=== PATIENT | male | born 1960 | race Caucasian/White ===

== ENCOUNTER 2017-06-27 20:03 | Inpatient (IN) | payer MEDICAID, OTHER ==
[~2017-06-27] VITALS: Ht 172.7 cm; Wt 60.4 kg
[~2017-06-27 20:03] MED LIST: AMLO2.5T PO; FERR-72 PO; OLAN7.5T2 PO; TRIH5TAB2 PO
[2017-06-27 22:19] LABS: ANION GAP 7 mmol/L (8-16); CALCIUM, TOTAL 8.9 mg/dL (8.8-10.5); CARBON DIOXIDE 29 mmol/L (22-29); CHLORIDE 101 mmol/L (98-107); CREATININE 0.91 mg/dL (0.60-1.30); GLOMERULAR FILTR. RATE CALC > 60 mL/min (>60); POTASSIUM 3.9 mmol/L (3.5-5.1); SODIUM SERUM 137 mmol/L (136-145); UREA NITROGEN, BLOOD 27 mg/dL (7-18)
[2017-06-27 22:20] LABS: BASOPHILS % (AUTO) 0.8 % (0.0-2.0); EOSINOPHILS % (AUTO) 1.6 % (1.0-6.0); HEMATOCRIT 37.3 % (41-53); HEMOGLOBIN 12.2 g/dL (13.5-17.5); LYMPHOCYTES # (AUTO) 1.9 K/uL (1.0-4.8); LYMPHOCYTES % (AUTO) 18.8 % (22.0-44.0); MEAN CORPUSCULAR HEMOGLOBIN 25.8 pg (26.0-34.0); MEAN CORPUSCULAR HGB CONC 32.8 G/dL (31.0-37.0); MEAN CORPUSCULAR VOLUME 79 fL (80-100); MONOCYTES % (AUTO) 10.2 % (2.0-9.0); NEUTROPHILS # (AUTO) 7.1 K/uL (1.8-7.7); NEUTROPHILS % (AUTO) 68.6 % (40.0-70.0); PLATELET COUNT (AUTO) 216 K/uL (150-450); RED BLOOD CELL COUNT(AUTO) 4.75 MIL/uL (4.50-5.90); RED CELL DISTRIBUTION WIDTH 16.1 % (11.5-14.5); WHITE BLOOD COUNT (AUTO) 10.3 K/uL (4.5-11.0)
[2017-06-27 22:26] LABS: ALANINE AMINOTRANSFERASE 85 U/L (12-78); ALBUMIN 3.7 g/dL (3.4-5.0); ASPARTATE AMINOTRANSFERASE 90 U/L (15-37); TOTAL PROTEIN, SERUM 7.7 g/dL (6.4-8.2)
[2017-06-28] MEDS ORDERED: OLANZapine 5 MG TABLET PO ONE (01:45)
[2017-06-28] MEDS ORDERED: OLANZapine 5 MG RAPDIS TABLET PO PRN (03:00)
[2017-06-28] MEDS ORDERED: LORazepam 2 MG TABLET PO PRN (03:00)
[2017-06-28] MEDS ORDERED: ZOLPIDEM TARTRATE 10 MG TABLET PO PRN (03:00)
[2017-06-28 04:15] VITALS: BP 145/85
[2017-06-28 04:38] LABS: CHOL/HDL RATIO 2.4 (4.2-7.3); THYROID STIMULATING HORMONE 0.65 uIU/mL (0.36-3.74)
[2017-06-28] MEDS ORDERED: GuaiFENesin/D-METHORPHAN [SUGAR-FREE] 200-20MG/10 ML SYRUP UDCUP PO PRN (09:45)
[2017-06-28] MEDS ORDERED: MAGNESIUM HYDROXIDE SUSPENSION 30 ML UDCUP PO PRN (09:45)
[2017-06-28] MEDS ORDERED: MAG HYDROX/AL HYDROX/SIMETH ES 30 ML SUSPENSION UDCUP PO PRN (09:45)
[2017-06-28] MEDS ORDERED: TUBERCULIN, PURIFIED PROTEIN DERIVATIVE 5 TU/0.1 ML SYG ID ONE (09:45)
[2017-06-28] MEDS ORDERED: PROMETHAZINE HCL 25 MG TABLET PO PRN (09:45)
[2017-06-28] MEDS ORDERED: LOPERAMIDE HCL 2 MG CAPSULE PO PRN (09:45)
[2017-06-28] MEDS ORDERED: HydrOXYzine PAMOATE 50 MG CAPSULE PO PRN (09:45)
[2017-06-28] MEDS ORDERED: ACETAMINOPHEN 325 MG TABLET PO PRN (09:45)
[2017-06-28 09:58] VITALS: BP 122/73
[2017-06-28] MEDS: TRIHEXYPHENIDYL HCL 2 MG TABLET PO SCH ×2 (12:12→18:16)
[2017-06-28] MEDS: THIAMINE HCL 100 MG TABLET PO SCH (18:16)
[2017-06-28 18:34] VITALS: BP 125/78
[2017-06-28] MEDS ORDERED: OLANZapine 5 MG RAPDIS TABLET PO SCH (21:00)
[2017-06-29 08:24] VITALS: BP 142/71
[2017-06-29] MEDS: TRIHEXYPHENIDYL HCL 2 MG TABLET PO SCH ×3 (08:28→17:53)
[2017-06-29] MEDS: MULTIVITAMINS WITH MINERALS, THERAPEUTIC TABLET PO SCH (08:28)
[2017-06-29] MEDS: AmLODIPine BESYLATE 2.5 MG TABLET PO SCH (08:28)
[2017-06-29] MEDS: FOLIC ACID 1 MG TABLET PO SCH (08:28)
[2017-06-29] MEDS: THIAMINE HCL 100 MG TABLET PO SCH ×2 (08:29→17:53)
[2017-06-29 16:51] VITALS: BP 128/71
[2017-06-29 20:11] VITALS: BP 131/87
[2017-06-29] MEDS ORDERED: OLANZapine 10 MG RAPDIS TABLET PO SCH (21:00)
[2017-06-30 08:00] VITALS: BP 122/73
[2017-06-30] MEDS: THIAMINE HCL 100 MG TABLET PO SCH ×2 (08:36→16:02)
[2017-06-30] MEDS: MULTIVITAMINS WITH MINERALS, THERAPEUTIC TABLET PO SCH (08:36)
[2017-06-30] MEDS: FOLIC ACID 1 MG TABLET PO SCH (08:36)
[2017-06-30] MEDS: TRIHEXYPHENIDYL HCL 2 MG TABLET PO SCH ×3 (08:36→16:02)
[2017-06-30] MEDS: AmLODIPine BESYLATE 2.5 MG TABLET PO SCH (08:36)
[2017-06-30 16:23] VITALS: BP 150/78
[2017-06-30] MEDS: OLANZapine 5 MG RAPDIS TABLET PO SCH (20:46)
[2017-07-01] MEDS: TRIHEXYPHENIDYL HCL 2 MG TABLET PO SCH ×3 (08:14→16:33)
[2017-07-01] MEDS: FOLIC ACID 1 MG TABLET PO SCH (08:15)
[2017-07-01] MEDS: AmLODIPine BESYLATE 2.5 MG TABLET PO SCH (08:15)
[2017-07-01] MEDS: MULTIVITAMINS WITH MINERALS, THERAPEUTIC TABLET PO SCH (08:15)
[2017-07-01] MEDS: THIAMINE HCL 100 MG TABLET PO SCH ×2 (08:15→16:33)
[2017-07-01 08:16] VITALS: BP 122/71
[2017-07-01 16:50] VITALS: BP 127/67
[2017-07-01] MEDS: OLANZapine 5 MG RAPDIS TABLET PO SCH (21:16)
[2017-07-02 08:16] VITALS: BP 137/88
[2017-07-02] MEDS: FOLIC ACID 1 MG TABLET PO SCH (09:20)
[2017-07-02] MEDS: AmLODIPine BESYLATE 2.5 MG TABLET PO SCH (09:20)
[2017-07-02] MEDS: MULTIVITAMINS WITH MINERALS, THERAPEUTIC TABLET PO SCH (09:20)
[2017-07-02] MEDS: TRIHEXYPHENIDYL HCL 2 MG TABLET PO SCH ×3 (09:21→16:33)
[2017-07-02] MEDS: THIAMINE HCL 100 MG TABLET PO SCH ×2 (09:21→16:33)
[2017-07-02 17:39] VITALS: BP 136/72
[2017-07-02] MEDS: OLANZapine 5 MG RAPDIS TABLET PO SCH (20:30)
[2017-07-03 08:10] VITALS: BP 118/74
[2017-07-03] MEDS: AmLODIPine BESYLATE 2.5 MG TABLET PO SCH (08:40)
[2017-07-03] MEDS: FOLIC ACID 1 MG TABLET PO SCH (08:40)
[2017-07-03] MEDS: THIAMINE HCL 100 MG TABLET PO SCH ×2 (08:40→16:09)
[2017-07-03] MEDS: TRIHEXYPHENIDYL HCL 2 MG TABLET PO SCH ×3 (08:40→16:09)
[2017-07-03] MEDS: MULTIVITAMINS WITH MINERALS, THERAPEUTIC TABLET PO SCH (08:40)
[2017-07-03] MEDS: OLANZapine 5 MG RAPDIS TABLET PO SCH (20:35)
[2017-07-03 20:56] VITALS: BP 131/89
[2017-07-04 08:19] VITALS: BP 138/76
[2017-07-04] MEDS: THIAMINE HCL 100 MG TABLET PO SCH ×2 (10:33→17:05)
[2017-07-04] MEDS: MULTIVITAMINS WITH MINERALS, THERAPEUTIC TABLET PO SCH (10:33)
[2017-07-04] MEDS: TRIHEXYPHENIDYL HCL 2 MG TABLET PO SCH ×3 (10:33→17:05)
[2017-07-04] MEDS: AmLODIPine BESYLATE 2.5 MG TABLET PO SCH (10:33)
[2017-07-04] MEDS: FOLIC ACID 1 MG TABLET PO SCH (10:33)
[2017-07-04 16:30] VITALS: BP 150/70
[2017-07-04] MEDS: OLANZapine 5 MG RAPDIS TABLET PO SCH (20:27)
[2017-07-05 08:00] VITALS: BP 132/82
[2017-07-05] MEDS: FOLIC ACID 1 MG TABLET PO SCH (08:28)
[2017-07-05] MEDS: AmLODIPine BESYLATE 2.5 MG TABLET PO SCH (08:28)
[2017-07-05] MEDS: THIAMINE HCL 100 MG TABLET PO SCH ×2 (08:28→16:54)
[2017-07-05] MEDS: MULTIVITAMINS WITH MINERALS, THERAPEUTIC TABLET PO SCH (08:28)
[2017-07-05] MEDS: TRIHEXYPHENIDYL HCL 2 MG TABLET PO SCH ×3 (08:28→16:54)
[2017-07-05 16:19] VITALS: BP 135/76
[2017-07-05] MEDS: OLANZapine 5 MG RAPDIS TABLET PO SCH (22:01)
[2017-07-06 08:17] VITALS: BP 120/69
[2017-07-06] MEDS: MULTIVITAMINS WITH MINERALS, THERAPEUTIC TABLET PO SCH (08:34)
[2017-07-06] MEDS: TRIHEXYPHENIDYL HCL 2 MG TABLET PO SCH ×3 (08:34→16:37)
[2017-07-06] MEDS: AmLODIPine BESYLATE 2.5 MG TABLET PO SCH (08:35)
[2017-07-06] MEDS: FOLIC ACID 1 MG TABLET PO SCH (08:35)
[2017-07-06] MEDS: THIAMINE HCL 100 MG TABLET PO SCH ×2 (08:35→16:37)
[2017-07-06 18:08] VITALS: BP 128/76
[2017-07-06] MEDS: OLANZapine 5 MG RAPDIS TABLET PO SCH (20:11)
[2017-07-07] MEDS: THIAMINE HCL 100 MG TABLET PO SCH ×2 (09:12→16:12)
[2017-07-07] MEDS: MULTIVITAMINS WITH MINERALS, THERAPEUTIC TABLET PO SCH (09:12)
[2017-07-07] MEDS: TRIHEXYPHENIDYL HCL 2 MG TABLET PO SCH ×3 (09:12→16:12)
[2017-07-07] MEDS: FOLIC ACID 1 MG TABLET PO SCH (09:12)
[2017-07-07] MEDS: AmLODIPine BESYLATE 2.5 MG TABLET PO SCH (09:12)
[2017-07-07 09:17] VITALS: BP 123/84
[2017-07-07 16:33] VITALS: BP 119/71
[2017-07-07] MEDS: OLANZapine 5 MG RAPDIS TABLET PO SCH (20:45)
[2017-07-08 08:38] VITALS: BP 143/79
[2017-07-08] MEDS: THIAMINE HCL 100 MG TABLET PO SCH (09:18)
[2017-07-08] MEDS: FOLIC ACID 1 MG TABLET PO SCH (09:18)
[2017-07-08] MEDS: AmLODIPine BESYLATE 2.5 MG TABLET PO SCH (09:18)
[2017-07-08] MEDS: MULTIVITAMINS WITH MINERALS, THERAPEUTIC TABLET PO SCH (09:18)
[2017-07-08] MEDS: TRIHEXYPHENIDYL HCL 2 MG TABLET PO SCH ×3 (09:19→17:35)
[2017-07-08 16:03] VITALS: BP 124/70
[2017-07-08] MEDS: OLANZapine 5 MG RAPDIS TABLET PO SCH (20:52)
[2017-07-09 08:17] VITALS: BP 130/72
[2017-07-09] MEDS: TRIHEXYPHENIDYL HCL 2 MG TABLET PO SCH ×3 (09:13→16:57)
[2017-07-09] MEDS: AmLODIPine BESYLATE 2.5 MG TABLET PO SCH (09:13)
[2017-07-09] MEDS: MULTIVITAMINS WITH MINERALS, THERAPEUTIC TABLET PO SCH (09:13)
[2017-07-09 16:20] VITALS: BP 119/66
[2017-07-09] MEDS: OLANZapine 5 MG RAPDIS TABLET PO SCH (21:06)
[2017-07-10 08:15] VITALS: BP 132/81
[2017-07-10] MEDS: AmLODIPine BESYLATE 2.5 MG TABLET PO SCH (08:28)
[2017-07-10] MEDS: MULTIVITAMINS WITH MINERALS, THERAPEUTIC TABLET PO SCH (08:28)
[2017-07-10] MEDS: TRIHEXYPHENIDYL HCL 2 MG TABLET PO SCH ×3 (08:28→16:09)
[2017-07-10 16:23] VITALS: BP 127/65
[2017-07-10] MEDS: OLANZapine 5 MG RAPDIS TABLET PO SCH (20:09)
[2017-07-11] MEDS: MULTIVITAMINS WITH MINERALS, THERAPEUTIC TABLET PO SCH (08:12)
[2017-07-11] MEDS: TRIHEXYPHENIDYL HCL 2 MG TABLET PO SCH ×3 (08:12→16:46)
[2017-07-11] MEDS: AmLODIPine BESYLATE 2.5 MG TABLET PO SCH (08:12)
[2017-07-11 08:17] VITALS: BP 115/78
[2017-07-11 16:00] VITALS: BP 127/84
[2017-07-11] MEDS: OLANZapine 5 MG RAPDIS TABLET PO SCH (20:54)
[2017-07-12 08:09] VITALS: BP 147/94
[2017-07-12] MEDS: MULTIVITAMINS WITH MINERALS, THERAPEUTIC TABLET PO SCH (08:22)
[2017-07-12] MEDS: AmLODIPine BESYLATE 2.5 MG TABLET PO SCH (08:22)
[2017-07-12] MEDS: TRIHEXYPHENIDYL HCL 2 MG TABLET PO SCH ×2 (08:22→14:03)
[2017-07-12] MEDS ORDERED: TRIH2TAB3 PO (13:47)
[2017-07-12] MEDS ORDERED: OLAN10TA3 PO (13:47)
[2017-07-12] MEDS ORDERED: MULT1TAB28 PO (13:51)
== END 2017-07-12 15:45 | disposition home or self-care (01) | DRG 750 ==
LOC: EMS 20:05 → 3EC 06-28 03:44
PROVIDERS: ADMIT Psychiatry & Neurology Psychiatry; ATTEND Psychiatry & Neurology Psychiatry
DX: F25.9 Schizoaffective disorder, unspecified (principal); R45.851 Suicidal ideations; F41.9 Anxiety disorder, unspecified; F31.9 Bipolar disorder, unspecified; B19.20 Unspecified viral hepatitis C without hepatic coma; D64.9 Anemia, unspecified; G47.00 Insomnia, unspecified; Z59.0 Homelessness; Z99.3 Dependence on wheelchair; Z91.14 Patient's other noncompliance with medication regimen; Z91.5 Personal history of self-harm; Z68.1 Body mass index [BMI] 19.9 or less, adult; Z84.1 Family history of disorders of kidney and ureter; Z79.899 Other long term (current) drug therapy
CPT/HCPCS: 84443; 99285; G0480

== ENCOUNTER 2017-12-26 04:16 | Inpatient (IN) | payer MEDICAID, OTHER ==
[~2017-12-26] VITALS: Ht 170.2 cm; Wt 65.9 kg
[~2017-12-26 04:16] MED LIST changes: -FERR-72 PO; +MULT1TAB28 PO; +OLAN10TA3 PO; -OLAN7.5T2 PO; +TRIH2TAB3 PO; -TRIH5TAB2 PO
[2017-12-26 05:19] LABS: BASOPHILS % (AUTO) 0.9 % (0.0-2.0); EOSINOPHILS % (AUTO) 0.6 % (1.0-6.0); HEMATOCRIT 36.4 % (41-53); HEMOGLOBIN 12.1 g/dL (13.5-17.5); LYMPHOCYTES # (AUTO) 1.6 K/uL (1.0-4.8); LYMPHOCYTES % (AUTO) 15.4 % (22.0-44.0); MEAN CORPUSCULAR HGB CONC 33.2 G/dL (31.0-37.0); MEAN CORPUSCULAR VOLUME 75 fL (80-100); MONOCYTES # (AUTO) 1.3 K/uL (0.1-1.0); MONOCYTES % (AUTO) 12.5 % (2.0-9.0); NEUTROPHILS # (AUTO) 7.1 K/uL (1.8-7.7); NEUTROPHILS % (AUTO) 70.6 % (40.0-70.0); PLATELET COUNT (AUTO) 205 K/uL (150-450); RED BLOOD CELL COUNT(AUTO) 4.83 MIL/uL (4.50-5.90); RED CELL DISTRIBUTION WIDTH 15.3 % (11.5-14.5)
[2017-12-26 05:34] LABS: ANION GAP 10 mmol/L (8-16); CALCIUM, TOTAL 9.5 mg/dL (8.8-10.5); CARBON DIOXIDE 28 mmol/L (22-29); CHLORIDE 105 mmol/L (98-107); GLOMERULAR FILTR. RATE CALC > 60 mL/min (>60); GLUCOSE,RANDOM 92 mg/dL (70-110); POTASSIUM 3.8 mmol/L (3.5-5.1); SODIUM SERUM 143 mmol/L (136-145); UREA NITROGEN, BLOOD 44 mg/dL (7-18)
[2017-12-26 05:40] LABS: ALANINE AMINOTRANSFERASE 63 U/L (12-78); ALBUMIN 3.9 g/dL (3.4-5.0); ALKALINE PHOSPHATASE 61 U/L (46-116); ASPARTATE AMINOTRANSFERASE 67 U/L (15-37); BILIRUBIN,TOTAL 1.4 mg/dL (0.1-1.0); TOTAL PROTEIN, SERUM 8.2 g/dL (6.4-8.2)
[2017-12-26] MEDS ORDERED: ZOLPIDEM TARTRATE 10 MG TABLET PO PRN (06:15)
[2017-12-26] MEDS ORDERED: LORazepam 2 MG TABLET PO PRN (06:15)
[2017-12-26] MEDS ORDERED: HALOPERIDOL 5 MG TABLET PO PRN (06:15)
[2017-12-26] MEDS ORDERED: DiphenhydrAMINE HCL 50 MG/ML VIAL IM ONE (06:45)
[2017-12-26] MEDS ORDERED: LORazepam 2 MG/ML VIAL IM ONE (06:45)
[2017-12-26] MEDS ORDERED: HALOPERIDOL LACTATE 5 MG/ML VIAL IM ONE (06:45)
[2017-12-26 09:19] LABS: AMPHET/METH SCREEN,URINE POSITIVE (NEGATIVE); APPEARANCE,URINE CLEAR (CLEAR); BARBITURATE SCREEN, URINE NEGATIVE (NEGATIVE); BENZODIAZEPINES SCREEN,URINE NEGATIVE (NEGATIVE); CANNABINOID SCREEN,URINE NEGATIVE (NEGATIVE); COCAINE SCREEN,URINE NEGATIVE (NEGATIVE); GLUCOSE, URINE (UA) NEGATIVE (NEGATIVE); KETONES,URINE TRACE mg/dL (NEGATIVE); LEUKOCYTE ESTERASE ,URINE NEGATIVE (NEGATIVE); METHADONE SCREEN, URINE NEGATIVE (NEGATIVE); NITRATE,URINE NEGATIVE (NEGATIVE); OCCULT BLOOD,URINE NEGATIVE (NEGATIVE); OPIATE SCREEN,URINE NEGATIVE (NEGATIVE); PH,URINE 5.5 (5.0-8.0); PROTEIN,URINE NEGATIVE (NEGATIVE)
[2017-12-26 09:23] LABS: PHENCYCLIDINE SCREEN,URINE NEGATIVE (NEGATIVE)
[2017-12-26 09:31] LABS: BILIRUBIN,URINE PRELIM. POSITIVE (NEGATIVE)
[2017-12-26 17:00] VITALS: BP 121/87
[2017-12-26] MEDS ORDERED: CloNIDine HCL 0.1 MG TABLET PO PRN (18:00)
[2017-12-26] MEDS ORDERED: MAG HYDROX/AL HYDROX/SIMETH ES 30 ML SUSPENSION UDCUP PO PRN (18:00)
[2017-12-26] MEDS ORDERED: ALBUTEROL SULFATE HFA 90 MCG/PUFF 8 GM INHALER IH PRN (18:00)
[2017-12-26] MEDS ORDERED: LOPERAMIDE HCL 2 MG CAPSULE PO PRN (18:00)
[2017-12-26] MEDS ORDERED: IBUPROFEN 600 MG TABLET PO PRN (18:00)
[2017-12-26] MEDS ORDERED: MAGNESIUM HYDROXIDE SUSPENSION 30 ML UDCUP PO PRN (18:00)
[2017-12-26] MEDS ORDERED: ACETAMINOPHEN 325 MG TABLET PO PRN (18:00)
[2017-12-26] MEDS ORDERED: BENZOCAINE/MENTHOL LOZENGE [8 LOZENGES/PACKET] MM PRN (18:00)
[2017-12-26] MEDS ORDERED: PETROLATUM,WHITE 71 GM JELLY TP PRN (18:00)
[2017-12-26] MEDS ORDERED: BACITRACIN 28.4 GM OINTMENT TP PRN (18:00)
[2017-12-26] MEDS: DOCUSATE SODIUM 100 MG CAPSULE PO SCH (18:00)
[2017-12-26] MEDS ORDERED: ONDANSETRON HCL 4 MG TABLET PO PRN (18:00)
[2017-12-27 07:12] LABS: BASOPHILS % (AUTO) 0.5 % (0.0-2.0); EOSINOPHILS % (AUTO) 3.1 % (1.0-6.0); HEMATOCRIT 38.5 % (41-53); HEMOGLOBIN 12.4 g/dL (13.5-17.5); LYMPHOCYTES % (AUTO) 14.9 % (22.0-44.0); MEAN CORPUSCULAR HEMOGLOBIN 24.6 pg (26.0-34.0); MEAN CORPUSCULAR HGB CONC 32.3 G/dL (31.0-37.0); MEAN CORPUSCULAR VOLUME 76 fL (80-100); MONOCYTES # (AUTO) 0.9 K/uL (0.1-1.0); NEUTROPHILS # (AUTO) 4.7 K/uL (1.8-7.7); NEUTROPHILS % (AUTO) 68.5 % (40.0-70.0); PLATELET COUNT (AUTO) 162 K/uL (150-450); RED BLOOD CELL COUNT(AUTO) 5.05 MIL/uL (4.50-5.90); RED CELL DISTRIBUTION WIDTH 15.2 % (11.5-14.5)
[2017-12-27 07:42] LABS: ANION GAP 9 mmol/L (8-16); CALCIUM, TOTAL 8.9 mg/dL (8.8-10.5); CARBON DIOXIDE 28 mmol/L (22-29); CHLORIDE 104 mmol/L (98-107); CHOL/HDL RATIO 3.4 (4.2-7.3); CHOLESTEROL 196 mg/dL (131-200); CREATININE 0.92 mg/dL (0.60-1.30); GLOMERULAR FILTR. RATE CALC > 60 mL/min (>60); GLUCOSE,RANDOM 83 mg/dL (70-110); HDL CHOLESTEROL 57 mg/dL (40-60); LDL CHOL (CALC.) 131 mg/dL (0-130); POTASSIUM 3.8 mmol/L (3.5-5.1); SODIUM SERUM 141 mmol/L (136-145); TRIGLYCERIDES 38 mg/dL (15-150); UREA NITROGEN, BLOOD 36 mg/dL (7-18)
[2017-12-27] MEDS ORDERED: OMEPRAZOLE 20 MG CAPSULE PO SCH (09:00)
[2017-12-27] MEDS ORDERED: MULTIVITAMINS, THERAPEUTIC TABLET PO SCH (09:00)
[2017-12-27] MEDS: AmLODIPine BESYLATE 2.5 MG TABLET PO SCH (09:00)
[2017-12-27] MEDS: DOCUSATE SODIUM 100 MG CAPSULE PO SCH (09:00)
[2017-12-27 09:14] VITALS: BP 119/56
[2017-12-27 19:17] VITALS: BP 104/56
[2017-12-27] MEDS: OLANZapine 5 MG RAPDIS TABLET PO SCH (21:47)
[2017-12-28 07:18] VITALS: BP 137/97
[2017-12-28 08:18] VITALS: BP 137/94
[2017-12-28] MEDS: MULTIVITAMINS WITH MINERALS, THERAPEUTIC TABLET PO SCH (09:23)
[2017-12-28] MEDS: AmLODIPine BESYLATE 2.5 MG TABLET PO SCH (09:23)
[2017-12-28] MEDS: FLUoxetine HCL 20 MG CAPSULE PO SCH (09:23)
[2017-12-28 19:04] VITALS: BP 124/79
[2017-12-28] MEDS: OLANZapine 5 MG RAPDIS TABLET PO SCH (21:05)
[2017-12-29] MEDS: AmLODIPine BESYLATE 2.5 MG TABLET PO SCH ×2 (09:00→11:14)
[2017-12-29] MEDS: FLUoxetine HCL 20 MG CAPSULE PO SCH ×2 (09:00→11:15)
[2017-12-29] MEDS: MULTIVITAMINS WITH MINERALS, THERAPEUTIC TABLET PO SCH ×2 (09:00→11:14)
[2017-12-29 10:53] VITALS: BP 140/86
[2017-12-29 16:52] VITALS: BP 133/80
[2017-12-29] MEDS: OLANZapine 5 MG RAPDIS TABLET PO SCH (21:24)
[2017-12-30 08:00] VITALS: BP 122/73
[2017-12-30] MEDS ORDERED: OLAN5TAB2 PO (08:48)
[2017-12-30] MEDS ORDERED: FLUO-191 PO (08:48)
[2017-12-30] MEDS ORDERED: VITAD1000 PO (08:50)
[2017-12-30] MEDS ORDERED: CHOLECALCIFEROL (VIT D3) 1,000 UNITS TABLET PO SCH (09:00)
[2017-12-30] MEDS: MULTIVITAMINS WITH MINERALS, THERAPEUTIC TABLET PO SCH (09:01)
[2017-12-30] MEDS: FLUoxetine HCL 20 MG CAPSULE PO SCH (09:01)
[2017-12-30] MEDS: AmLODIPine BESYLATE 2.5 MG TABLET PO SCH (09:01)
== END 2017-12-30 15:00 | disposition home or self-care (01) | DRG 750 ==
LOC: EDUNIT# 04:16 → EMS 04:17 → 3EI 16:31
PROVIDERS: ADMIT Psychiatry & Neurology Psychiatry; ATTEND Psychiatry & Neurology Psychiatry
DX: F25.0 Schizoaffective disorder, bipolar type (principal); R45.851 Suicidal ideations; F15.20 Other stimulant dependence, uncomplicated; R45.850 Homicidal ideations; F60.3 Borderline personality disorder; B18.2 Chronic viral hepatitis C; D64.9 Anemia, unspecified; I10 Essential (primary) hypertension; Z72.89 Other problems related to lifestyle; F41.9 Anxiety disorder, unspecified; E55.9 Vitamin D deficiency, unspecified; J44.9 Chronic obstructive pulmonary disease, unspecified; Z91.5 Personal history of self-harm; Z79.899 Other long term (current) drug therapy; Z71.51 Drug abuse counseling and surveillance of drug abuser; Z71.41 Alcohol abuse counseling and surveillance of alcoholic; Z56.0 Unemployment, unspecified; Z59.0 Homelessness; F17.200 Nicotine dependence, unspecified, uncomplicated
CPT/HCPCS: 82306; 84443; 93005; 96372; 99285; G0480; J1200; J1630; J2060

== ENCOUNTER 2018-08-01 00:43 | Emergency (ER) | payer MEDICAID, OTHER ==
[~2018-08-01] VITALS: Ht 172.7 cm; Wt 63.5 kg
[~2018-08-01 00:43] MED LIST changes: -AMLO2.5T PO; +AMLO2.5T3 PO; +FLUO-191 PO; -OLAN10TA3 PO; +OLAN5TAB2 PO; -TRIH2TAB3 PO; +VITAD1000 PO
[2018-08-01 01:29] LABS: BASOPHILS % (AUTO) 0.9 % (0.0-2.0); HEMATOCRIT 36.1 % (41-53); HEMOGLOBIN 11.7 g/dL (13.5-17.5); LYMPHOCYTES # (AUTO) 2.4 K/uL (1.0-4.8); LYMPHOCYTES % (AUTO) 27.8 % (22.0-44.0); MEAN CORPUSCULAR HEMOGLOBIN 25.1 pg (26.0-34.0); MEAN CORPUSCULAR HGB CONC 32.5 G/dL (31.0-37.0); MEAN CORPUSCULAR VOLUME 77 fL (80-100); MONOCYTES % (AUTO) 11.8 % (2.0-9.0); NEUTROPHILS # (AUTO) 4.9 K/uL (1.8-7.7); NEUTROPHILS % (AUTO) 57.5 % (40.0-70.0); PLATELET COUNT (AUTO) 237 K/uL (150-450); RED BLOOD CELL COUNT(AUTO) 4.67 MIL/uL (4.50-5.90); RED CELL DISTRIBUTION WIDTH 16.2 % (11.5-14.5)
[2018-08-01 01:36] LABS: ANION GAP 4 mmol/L (8-16); CALCIUM, TOTAL 8.6 mg/dL (8.8-10.5); CARBON DIOXIDE 34 mmol/L (22-29); CHLORIDE 103 mmol/L (98-107); CREATININE 0.86 mg/dL (0.60-1.30); GLOMERULAR FILTR. RATE CALC > 60 mL/min (>60); GLUCOSE,RANDOM 95 mg/dL (70-110); POTASSIUM 3.8 mmol/L (3.5-5.1); SODIUM SERUM 141 mmol/L (136-145); UREA NITROGEN, BLOOD 13 mg/dL (7-18)
[2018-08-01 01:38] LABS: AMPHET/METH SCREEN,URINE NEGATIVE (NEGATIVE); BARBITURATE SCREEN, URINE NEGATIVE (NEGATIVE); BENZODIAZEPINES SCREEN,URINE NEGATIVE (NEGATIVE); CANNABINOID SCREEN,URINE NEGATIVE (NEGATIVE); COCAINE SCREEN,URINE NEGATIVE (NEGATIVE); METHADONE SCREEN, URINE NEGATIVE (NEGATIVE); OPIATE SCREEN,URINE NEGATIVE (NEGATIVE); PHENCYCLIDINE SCREEN,URINE NEGATIVE (NEGATIVE)
[2018-08-01 01:43] LABS: ALANINE AMINOTRANSFERASE 69 U/L (12-78); ALBUMIN 3.1 g/dL (3.4-5.0); ALKALINE PHOSPHATASE 76 U/L (46-116); ASPARTATE AMINOTRANSFERASE 49 U/L (15-37); BILIRUBIN,TOTAL 0.3 mg/dL (0.1-1.0); TOTAL PROTEIN, SERUM 7.3 g/dL (6.4-8.2)
[2018-08-01 05:15] VITALS: BP 137/78
== END 2018-08-01 06:08 | disposition home or self-care (01) ==
LOC: EMS 00:44
DX: F20.9 Schizophrenia, unspecified (principal); F32.9 Major depressive disorder, single episode, unspecified; F31.9 Bipolar disorder, unspecified; F41.9 Anxiety disorder, unspecified; Z59.0 Homelessness
CPT/HCPCS: 36415; 80053; 80307; 85025; 99284; G0480

== ENCOUNTER 2019-02-03 18:26 | Inpatient (IN) | payer MEDICAID, OTHER ==
[~2019-02-03] VITALS: Ht 172.7 cm; Wt 60.4 kg
[~2019-02-03 18:26] MED LIST changes: -AMLO2.5T3 PO; +AMLO2.5T4 PO
[2019-02-03 19:30] LABS: BASOPHILS % (AUTO) 0.6 % (0.0-2.0); EOSINOPHILS % (AUTO) 3.5 % (1.0-6.0); HEMATOCRIT 36.9 % (41-53); HEMOGLOBIN 12.2 g/dL (13.5-17.5); LYMPHOCYTES # (AUTO) 1.8 K/uL (1.0-4.8); LYMPHOCYTES % (AUTO) 29.9 % (22.0-44.0); MEAN CORPUSCULAR HEMOGLOBIN 24.9 pg (26.0-34.0); MEAN CORPUSCULAR VOLUME 75 fL (80-100); MONOCYTES # (AUTO) 1.1 K/uL (0.1-1.0); MONOCYTES % (AUTO) 18.4 % (2.0-9.0); NEUTROPHILS # (AUTO) 2.8 K/uL (1.8-7.7); NEUTROPHILS % (AUTO) 47.6 % (40.0-70.0); PLATELET COUNT (AUTO) 142 K/uL (150-450); RED BLOOD CELL COUNT(AUTO) 4.89 MIL/uL (4.50-5.90); RED CELL DISTRIBUTION WIDTH 16.9 % (11.5-14.5)
[2019-02-03 19:41] LABS: AMPHET/METH SCREEN,URINE POSITIVE (NEGATIVE); BARBITURATE SCREEN, URINE NEGATIVE (NEGATIVE); BENZODIAZEPINES SCREEN,URINE NEGATIVE (NEGATIVE); CANNABINOID SCREEN,URINE NEGATIVE (NEGATIVE); COCAINE SCREEN,URINE NEGATIVE (NEGATIVE); METHADONE SCREEN, URINE NEGATIVE (NEGATIVE); OPIATE SCREEN,URINE NEGATIVE (NEGATIVE)
[2019-02-03 19:44] LABS: PHENCYCLIDINE SCREEN,URINE NEGATIVE (NEGATIVE)
[2019-02-03 19:51] LABS: APPEARANCE,URINE CLEAR (CLEAR); GLUCOSE, URINE (UA) NEGATIVE (NEGATIVE); KETONES,URINE NEGATIVE (NEGATIVE); LEUKOCYTE ESTERASE ,URINE TRACE (NEGATIVE); NITRATE,URINE NEGATIVE (NEGATIVE); OCCULT BLOOD,URINE NEGATIVE (NEGATIVE); PROTEIN,URINE NEGATIVE (NEGATIVE)
[2019-02-03 19:52] LABS: BILIRUBIN,URINE PRELIM. POSITIVE (NEGATIVE)
[2019-02-03 20:03] LABS: ANION GAP 7 mmol/L (8-16); CALCIUM, TOTAL 9.1 mg/dL (8.8-10.5); CARBON DIOXIDE 30 mmol/L (22-29); CHLORIDE 103 mmol/L (98-107); CREATININE 0.97 mg/dL (0.60-1.30); GLOMERULAR FILTR. RATE CALC > 60 mL/min (>60); GLUCOSE,RANDOM 84 mg/dL (70-110); POTASSIUM 3.6 mmol/L (3.5-5.1); SODIUM SERUM 140 mmol/L (136-145); UREA NITROGEN, BLOOD 30 mg/dL (7-18)
[2019-02-03 20:04] LABS: ALANINE AMINOTRANSFERASE 81 U/L (12-78); ALBUMIN 3.4 g/dL (3.4-5.0); ALKALINE PHOSPHATASE 60 U/L (46-116); ASPARTATE AMINOTRANSFERASE 114 U/L (15-37); BILIRUBIN,TOTAL 1.2 mg/dL (0.1-1.0); TOTAL PROTEIN, SERUM 7.8 g/dL (6.4-8.2)
[2019-02-03 20:27] LABS: RBC,URINE None Seen /HPF (0-2)
[2019-02-03 20:28] LABS: BACTERIA,URINE None Seen /HPF (None Seen); SQUAMOUS EPITHELIAL CELL,UR Rare /LPF (None Seen)
[2019-02-03] MEDS ORDERED: HALOPERIDOL 5 MG TABLET PO PRN (21:30)
[2019-02-03] MEDS ORDERED: ZOLPIDEM TARTRATE 10 MG TABLET PO PRN (21:30)
[2019-02-03] MEDS ORDERED: LORazepam 1 MG TABLET PO PRN (21:30)
[2019-02-03 22:41] VITALS: BP 142/80
[2019-02-04 06:18] VITALS: BP 132/81
[2019-02-04 07:15] LABS: CHOL/HDL RATIO 3.7 (4.2-7.3); FREE T4 (FREE THYROXINE) 1.22 ng/dL (0.76-1.46); THYROID STIMULATING HORMONE 0.5 uIU/mL (0.36-3.74)
[2019-02-04] MEDS ORDERED: PETROLATUM,WHITE 28 GM JELLY TP PRN (07:15)
[2019-02-04] MEDS ORDERED: OMEPRAZOLE 20 MG CAPSULE PO PRN (07:15)
[2019-02-04] MEDS ORDERED: BENZOCAINE/MENTHOL LOZENGE MM PRN (07:15)
[2019-02-04] MEDS ORDERED: LOPERAMIDE HCL 2 MG CAPSULE PO PRN (07:15)
[2019-02-04] MEDS ORDERED: ONDANSETRON HCL 4 MG TABLET PO PRN (07:15)
[2019-02-04] MEDS ORDERED: BACITRACIN 28.4 GM OINTMENT TP PRN (07:15)
[2019-02-04] MEDS ORDERED: MAGNESIUM HYDROXIDE SUSPENSION 30 ML UDCUP PO PRN (07:15)
[2019-02-04] MEDS ORDERED: ALBUTEROL SULFATE HFA 90 MCG/PUFF 8 GM INHALER IH PRN (07:15)
[2019-02-04] MEDS ORDERED: CloNIDine HCL 0.1 MG TABLET PO PRN (07:15)
[2019-02-04] MEDS ORDERED: DOCUSATE SODIUM 100 MG CAPSULE PO PRN (07:15)
[2019-02-04] MEDS ORDERED: MAG HYDROX/AL HYDROX/SIMETH ES 30 ML SUSPENSION UDCUP PO PRN (07:15)
[2019-02-04] MEDS ORDERED: IBUPROFEN 600 MG TABLET PO PRN (07:15)
[2019-02-04] MEDS ORDERED: ACETAMINOPHEN 325 MG TABLET PO PRN (07:15)
[2019-02-04 08:27] VITALS: BP 132/72
[2019-02-04] MEDS: CHOLECALCIFEROL (VIT D3) 1,000 UNITS TABLET PO SCH (09:50)
[2019-02-04] MEDS: MULTIVITAMINS, THERAPEUTIC TABLET PO SCH (09:50)
[2019-02-04] MEDS: AmLODIPine BESYLATE 2.5 MG TABLET PO SCH (09:50)
[2019-02-04 16:33] VITALS: BP 125/69
[2019-02-04] MEDS: OLANZapine 10 MG TABLET PO SCH (21:11)
[2019-02-05 08:06] VITALS: BP 145/72
[2019-02-05] MEDS: AmLODIPine BESYLATE 2.5 MG TABLET PO SCH (08:52)
[2019-02-05] MEDS: CHOLECALCIFEROL (VIT D3) 1,000 UNITS TABLET PO SCH (08:52)
[2019-02-05] MEDS: MULTIVITAMINS, THERAPEUTIC TABLET PO SCH (08:52)
[2019-02-05] MEDS: FLUoxetine HCL 20 MG CAPSULE PO SCH (08:52)
[2019-02-05 16:04] VITALS: BP 124/75
[2019-02-05] MEDS: OLANZapine 10 MG TABLET PO SCH (20:27)
[2019-02-06 07:07] VITALS: BP 149/87
[2019-02-06] MEDS: CHOLECALCIFEROL (VIT D3) 1,000 UNITS TABLET PO SCH (08:52)
[2019-02-06] MEDS: AmLODIPine BESYLATE 2.5 MG TABLET PO SCH (08:52)
[2019-02-06] MEDS: FLUoxetine HCL 20 MG CAPSULE PO SCH (08:52)
[2019-02-06] MEDS: MULTIVITAMINS, THERAPEUTIC TABLET PO SCH (08:52)
[2019-02-06 12:40] VITALS: BP 120/72
[2019-02-06 16:59] VITALS: BP 136/71
[2019-02-06] MEDS: OLANZapine 10 MG TABLET PO SCH (20:32)
[2019-02-07 02:53] VITALS: BP 150/78
[2019-02-07] MEDS: CHOLECALCIFEROL (VIT D3) 1,000 UNITS TABLET PO SCH (09:18)
[2019-02-07] MEDS: MULTIVITAMINS, THERAPEUTIC TABLET PO SCH (09:18)
[2019-02-07] MEDS: AmLODIPine BESYLATE 2.5 MG TABLET PO SCH (09:18)
[2019-02-07] MEDS: FLUoxetine HCL 20 MG CAPSULE PO SCH (09:18)
[2019-02-07 13:31] VITALS: BP 128/79
[2019-02-07 16:43] VITALS: BP 119/85
[2019-02-07] MEDS: OLANZapine 7.5 MG TABLET PO SCH (20:25)
[2019-02-08] MEDS: AmLODIPine BESYLATE 2.5 MG TABLET PO SCH (09:30)
[2019-02-08] MEDS: CHOLECALCIFEROL (VIT D3) 1,000 UNITS TABLET PO SCH (09:30)
[2019-02-08] MEDS: FLUoxetine HCL 20 MG CAPSULE PO SCH (09:30)
[2019-02-08] MEDS: MULTIVITAMINS, THERAPEUTIC TABLET PO SCH (09:30)
[2019-02-08 10:37] VITALS: BP 158/77
[2019-02-08 17:08] VITALS: BP 147/82
[2019-02-08] MEDS: OLANZapine 7.5 MG TABLET PO SCH (20:25)
[2019-02-09 09:43] VITALS: BP 131/77
[2019-02-09] MEDS: FLUoxetine HCL 20 MG CAPSULE PO SCH (09:57)
[2019-02-09] MEDS: OMEGA-3/DHA/EPA/FISH OIL 500 MG CAPSULE PO SCH (09:57)
[2019-02-09] MEDS: CHOLECALCIFEROL (VIT D3) 1,000 UNITS TABLET PO SCH (09:57)
[2019-02-09] MEDS: MULTIVITAMINS, THERAPEUTIC TABLET PO SCH (09:57)
[2019-02-09] MEDS: AmLODIPine BESYLATE 2.5 MG TABLET PO SCH (09:57)
[2019-02-09 16:37] VITALS: BP 138/76
[2019-02-09] MEDS: OLANZapine 7.5 MG TABLET PO SCH (20:21)
[2019-02-10 08:10] VITALS: BP 125/72
[2019-02-10] MEDS: FLUoxetine HCL 20 MG CAPSULE PO SCH (09:19)
[2019-02-10] MEDS: AmLODIPine BESYLATE 2.5 MG TABLET PO SCH (09:19)
[2019-02-10] MEDS: OMEGA-3/DHA/EPA/FISH OIL 500 MG CAPSULE PO SCH (09:19)
[2019-02-10] MEDS: MULTIVITAMINS, THERAPEUTIC TABLET PO SCH (09:19)
[2019-02-10] MEDS: CHOLECALCIFEROL (VIT D3) 1,000 UNITS TABLET PO SCH (09:19)
[2019-02-10 18:39] VITALS: BP 127/72
[2019-02-10] MEDS: OLANZapine 7.5 MG TABLET PO SCH (20:21)
[2019-02-11 04:17] VITALS: BP 118/74
[2019-02-11 08:55] VITALS: BP 145/72
[2019-02-11] MEDS: OMEGA-3/DHA/EPA/FISH OIL 500 MG CAPSULE PO SCH (09:20)
[2019-02-11] MEDS: MULTIVITAMINS, THERAPEUTIC TABLET PO SCH (09:20)
[2019-02-11] MEDS: CHOLECALCIFEROL (VIT D3) 1,000 UNITS TABLET PO SCH (09:20)
[2019-02-11] MEDS: FLUoxetine HCL 20 MG CAPSULE PO SCH (09:20)
[2019-02-11] MEDS: AmLODIPine BESYLATE 2.5 MG TABLET PO SCH (09:20)
[2019-02-11 16:39] VITALS: BP 121/66
[2019-02-11] MEDS: OLANZapine 7.5 MG TABLET PO SCH (20:35)
[2019-02-12 08:00] VITALS: BP 103/62
[2019-02-12] MEDS: OMEGA-3/DHA/EPA/FISH OIL 500 MG CAPSULE PO SCH (10:43)
[2019-02-12] MEDS: FLUoxetine HCL 20 MG CAPSULE PO SCH (10:43)
[2019-02-12] MEDS: AmLODIPine BESYLATE 2.5 MG TABLET PO SCH (10:43)
[2019-02-12] MEDS: CHOLECALCIFEROL (VIT D3) 1,000 UNITS TABLET PO SCH (10:47)
[2019-02-12] MEDS: MULTIVITAMINS, THERAPEUTIC TABLET PO SCH (10:47)
[2019-02-12 17:50] VITALS: BP 127/62
[2019-02-12] MEDS: OLANZapine 7.5 MG TABLET PO SCH (20:26)
[2019-02-13 04:10] VITALS: BP 133/81
[2019-02-13 09:05] VITALS: BP 138/79
[2019-02-13] MEDS: CHOLECALCIFEROL (VIT D3) 1,000 UNITS TABLET PO SCH (09:15)
[2019-02-13] MEDS: OMEGA-3/DHA/EPA/FISH OIL 500 MG CAPSULE PO SCH (09:15)
[2019-02-13] MEDS: MULTIVITAMINS, THERAPEUTIC TABLET PO SCH (09:15)
[2019-02-13] MEDS: FLUoxetine HCL 20 MG CAPSULE PO SCH (09:15)
[2019-02-13] MEDS: AmLODIPine BESYLATE 2.5 MG TABLET PO SCH (09:16)
[2019-02-13 17:04] VITALS: BP 118/72
[2019-02-13] MEDS: OLANZapine 7.5 MG TABLET PO SCH (20:37)
[2019-02-14] MEDS: MULTIVITAMINS, THERAPEUTIC TABLET PO SCH (09:07)
[2019-02-14] MEDS: OMEGA-3/DHA/EPA/FISH OIL 500 MG CAPSULE PO SCH (09:07)
[2019-02-14] MEDS: CHOLECALCIFEROL (VIT D3) 1,000 UNITS TABLET PO SCH (09:07)
[2019-02-14] MEDS: FLUoxetine HCL 20 MG CAPSULE PO SCH (09:07)
[2019-02-14] MEDS: AmLODIPine BESYLATE 2.5 MG TABLET PO SCH (09:07)
[2019-02-14 09:22] VITALS: BP 129/72
[2019-02-14 16:00] VITALS: BP 102/64
[2019-02-14] MEDS: OLANZapine 7.5 MG TABLET PO SCH (20:08)
[2019-02-15] MEDS: MULTIVITAMINS, THERAPEUTIC TABLET PO SCH (09:01)
[2019-02-15] MEDS: AmLODIPine BESYLATE 2.5 MG TABLET PO SCH (09:01)
[2019-02-15] MEDS: CHOLECALCIFEROL (VIT D3) 1,000 UNITS TABLET PO SCH (09:01)
[2019-02-15] MEDS: OMEGA-3/DHA/EPA/FISH OIL 500 MG CAPSULE PO SCH (09:01)
[2019-02-15] MEDS: FLUoxetine HCL 20 MG CAPSULE PO SCH (09:01)
[2019-02-15 10:40] VITALS: BP 130/62
[2019-02-15 16:30] VITALS: BP 118/68
[2019-02-15] MEDS: OLANZapine 7.5 MG TABLET PO SCH (20:10)
[2019-02-16 08:05] LABS: APPEARANCE,URINE CLEAR (CLEAR); BILIRUBIN,URINE NEGATIVE (NEGATIVE); GLUCOSE, URINE (UA) NEGATIVE (NEGATIVE); KETONES,URINE NEGATIVE (NEGATIVE); LEUKOCYTE ESTERASE ,URINE NEGATIVE (NEGATIVE); NITRATE,URINE NEGATIVE (NEGATIVE); OCCULT BLOOD,URINE NEGATIVE (NEGATIVE); PH,URINE 5.5 (5.0-8.0); PROTEIN,URINE NEGATIVE (NEGATIVE); UROBILINOGEN,URINE 0.2 mg/dL (<=1.0)
[2019-02-16] MEDS: CHOLECALCIFEROL (VIT D3) 1,000 UNITS TABLET PO SCH (08:52)
[2019-02-16] MEDS: OMEGA-3/DHA/EPA/FISH OIL 500 MG CAPSULE PO SCH (08:52)
[2019-02-16] MEDS: FLUoxetine HCL 20 MG CAPSULE PO SCH (08:53)
[2019-02-16] MEDS: AmLODIPine BESYLATE 2.5 MG TABLET PO SCH (08:53)
[2019-02-16] MEDS: MULTIVITAMINS, THERAPEUTIC TABLET PO SCH (08:53)
[2019-02-16 09:17] VITALS: BP 135/75
[2019-02-16 16:18] VITALS: BP 147/79
[2019-02-16] MEDS: OLANZapine 7.5 MG TABLET PO SCH (20:19)
[2019-02-17] MEDS: CHOLECALCIFEROL (VIT D3) 1,000 UNITS TABLET PO SCH (08:27)
[2019-02-17] MEDS: OMEGA-3/DHA/EPA/FISH OIL 500 MG CAPSULE PO SCH (08:27)
[2019-02-17] MEDS: MULTIVITAMINS, THERAPEUTIC TABLET PO SCH (08:27)
[2019-02-17] MEDS: FLUoxetine HCL 20 MG CAPSULE PO SCH (08:27)
[2019-02-17] MEDS: AmLODIPine BESYLATE 2.5 MG TABLET PO SCH (08:27)
[2019-02-17 10:04] VITALS: BP 142/66
[2019-02-17] MEDS ORDERED: OLAN7.5T2 PO (11:24)
== END 2019-02-17 13:50 | disposition home or self-care (01) | DRG 750 ==
LOC: EMS 18:27 → 3EX 20:49
PROVIDERS: ADMIT Psychiatry & Neurology Child & Adolescent Psychiatry; ATTEND Psychiatry & Neurology Child & Adolescent Psychiatry
DX: F25.1 Schizoaffective disorder, depressive type (principal); R45.851 Suicidal ideations; Z59.0 Homelessness; B18.2 Chronic viral hepatitis C; D64.9 Anemia, unspecified; E55.9 Vitamin D deficiency, unspecified; E78.00 Pure hypercholesterolemia, unspecified; F15.10 Other stimulant abuse, uncomplicated; F31.9 Bipolar disorder, unspecified; G89.29 Other chronic pain; I10 Essential (primary) hypertension; J44.9 Chronic obstructive pulmonary disease, unspecified; Z79.899 Other long term (current) drug therapy; Z91.19 Patient's noncompliance with other medical treatment and regimen; Z91.5 Personal history of self-harm
CPT/HCPCS: 84439; 84443; 87086; G0378; G0480

== ENCOUNTER 2019-06-08 18:00 | Inpatient (IN) | payer MEDICAID, OTHER ==
[~2019-06-08] VITALS: Ht 165.1 cm; Wt 54.0 kg
[~2019-06-08 18:00] MED LIST changes: +CHOL100018 PO; -OLAN5TAB2 PO; +OLAN7.5T2 PO; -VITAD1000 PO
[2019-06-08 20:52] LABS: BASOPHILS % (AUTO) 0.8 % (0.0-2.0); EOSINOPHILS % (AUTO) 2.1 % (1.0-6.0); HEMATOCRIT 37.8 % (41-53); HEMOGLOBIN 12.3 g/dL (13.5-17.5); LYMPHOCYTES # (AUTO) 2.2 K/uL (1.0-4.8); LYMPHOCYTES % (AUTO) 26.3 % (22.0-44.0); MEAN CORPUSCULAR HGB CONC 32.5 G/dL (31.0-37.0); MEAN CORPUSCULAR VOLUME 77 fL (80-100); MONOCYTES # (AUTO) 1.2 K/uL (0.1-1.0); MONOCYTES % (AUTO) 14.2 % (2.0-9.0); NEUTROPHILS # (AUTO) 4.8 K/uL (1.8-7.7); NEUTROPHILS % (AUTO) 56.6 % (40.0-70.0); PLATELET COUNT (AUTO) 173 K/uL (150-450); RED BLOOD CELL COUNT(AUTO) 4.91 MIL/uL (4.50-5.90); RED CELL DISTRIBUTION WIDTH 15.2 % (11.5-14.5)
[2019-06-08 21:15] LABS: ANION GAP 8 mmol/L (8-16); CALCIUM, TOTAL 9.1 mg/dL (8.8-10.5); CARBON DIOXIDE 29 mmol/L (22-29); CHLORIDE 102 mmol/L (98-107); CREATININE 1.17 mg/dL (0.60-1.30); GLOMERULAR FILTR. RATE CALC > 60 mL/min (>60); GLUCOSE,RANDOM 80 mg/dL (70-110); SODIUM SERUM 139 mmol/L (136-145); UREA NITROGEN, BLOOD 33 mg/dL (7-18)
[2019-06-08 21:17] LABS: AMPHET/METH SCREEN,URINE POSITIVE (NEGATIVE); BARBITURATE SCREEN, URINE NEGATIVE (NEGATIVE); BENZODIAZEPINES SCREEN,URINE NEGATIVE (NEGATIVE); CANNABINOID SCREEN,URINE POSITIVE (NEGATIVE); COCAINE SCREEN,URINE NEGATIVE (NEGATIVE); METHADONE SCREEN, URINE NEGATIVE (NEGATIVE); OPIATE SCREEN,URINE NEGATIVE (NEGATIVE); PHENCYCLIDINE SCREEN,URINE NEGATIVE (NEGATIVE)
[2019-06-08 21:21] LABS: ALANINE AMINOTRANSFERASE 76 U/L (12-78); ALBUMIN 4.1 g/dL (3.4-5.0); ALKALINE PHOSPHATASE 57 U/L (46-116); ASPARTATE AMINOTRANSFERASE 73 U/L (15-37); BILIRUBIN,TOTAL 1.5 mg/dL (0.1-1.0); TOTAL PROTEIN, SERUM 8.1 g/dL (6.4-8.2)
[2019-06-08] MEDS ORDERED: POTASSIUM CHLORIDE 20 MEQ ER TABLET PO ONE (21:45)
[2019-06-08] MEDS ORDERED: 0.9% SODIUM CHLORIDE 10 ML SYRINGE IVP PRN (22:30)
[2019-06-08] MEDS ORDERED: ACETAMINOPHEN 325 MG TABLET PO PRN (22:30)
[2019-06-08] MEDS ORDERED: ONDANSETRON HCL 4 MG/2 ML VIAL IVP PRN (22:30)
[2019-06-09] MEDS ORDERED: ZOLPIDEM TARTRATE 10 MG TABLET PO PRN (00:15)
[2019-06-09] MEDS ORDERED: HALOPERIDOL 5 MG TABLET PO PRN (00:15)
[2019-06-09] MEDS ORDERED: LORazepam 2 MG TABLET PO PRN (00:15)
[2019-06-09 03:48] VITALS: BP 125/84
[2019-06-09] MEDS ORDERED: PNEUMOCOCCAL VACCINE POLYVALENT 0.5 ML VIAL [PPSV23] IM ONE (05:00)
[2019-06-09] MEDS: AmLODIPine BESYLATE 2.5 MG TABLET PO SCH (08:19)
[2019-06-09] MEDS: FLUoxetine HCL 20 MG CAPSULE PO SCH (12:05)
[2019-06-09 14:32] VITALS: BP 126/76
[2019-06-09 17:49] VITALS: BP 126/76
[2019-06-09] MEDS: OLANZapine 10 MG TABLET PO SCH (20:35)
[2019-06-10 07:47] LABS: CHOL/HDL RATIO 3.8 (4.2-7.3); POTASSIUM 3.7 mmol/L (3.5-5.1)
[2019-06-10] MEDS: AmLODIPine BESYLATE 2.5 MG TABLET PO SCH (08:43)
[2019-06-10] MEDS: FLUoxetine HCL 20 MG CAPSULE PO SCH (08:44)
[2019-06-10 10:38] VITALS: BP 125/66
[2019-06-10 16:55] VITALS: BP 116/69
[2019-06-10] MEDS: OLANZapine 10 MG TABLET PO SCH (20:18)
[2019-06-11] MEDS: FLUoxetine HCL 20 MG CAPSULE PO SCH (08:25)
[2019-06-11] MEDS: AmLODIPine BESYLATE 2.5 MG TABLET PO SCH (08:25)
[2019-06-11 08:54] VITALS: BP 117/75
[2019-06-11] MEDS ORDERED: OLAN10TA3 PO (14:27)
== END 2019-06-11 16:03 | disposition home or self-care (01) | DRG 750 ==
LOC: EMS 18:02 → 3EI 06-09 01:10
PROVIDERS: ADMIT Psychiatry & Neurology Child & Adolescent Psychiatry; ATTEND Psychiatry & Neurology Child & Adolescent Psychiatry
DX: F25.1 Schizoaffective disorder, depressive type (principal); R45.851 Suicidal ideations; B18.2 Chronic viral hepatitis C; D64.9 Anemia, unspecified; E87.6 Hypokalemia; F12.20 Cannabis dependence, uncomplicated; F15.10 Other stimulant abuse, uncomplicated; F31.9 Bipolar disorder, unspecified; I10 Essential (primary) hypertension; Z71.51 Drug abuse counseling and surveillance of drug abuser
CPT/HCPCS: 84132; G0480

== ENCOUNTER 2019-07-21 15:36 | Inpatient (IN) | payer MEDICAID, OTHER ==
[~2019-07-21] VITALS: Ht 172.7 cm; Wt 53.1 kg
[~2019-07-21 15:36] MED LIST changes: -CHOL100018 PO; -MULT1TAB28 PO; +OLAN10TA3 PO; -OLAN7.5T2 PO
[2019-07-21 19:54] LABS: BASOPHILS % (AUTO) 0.4 % (0.0-2.0); EOSINOPHILS % (AUTO) 0.2 % (1.0-6.0); HEMATOCRIT 36.1 % (41-53); HEMOGLOBIN 11.6 g/dL (13.5-17.5); LYMPHOCYTES # (AUTO) 2.1 K/uL (1.0-4.8); LYMPHOCYTES % (AUTO) 13.3 % (22.0-44.0); MEAN CORPUSCULAR HEMOGLOBIN 24.8 pg (26.0-34.0); MEAN CORPUSCULAR VOLUME 77 fL (80-100); MONOCYTES # (AUTO) 1.3 K/uL (0.1-1.0); MONOCYTES % (AUTO) 8.2 % (2.0-9.0); NEUTROPHILS # (AUTO) 12.4 K/uL (1.8-7.7); NEUTROPHILS % (AUTO) 77.9 % (40.0-70.0); PLATELET COUNT (AUTO) 327 K/uL (150-450); RED BLOOD CELL COUNT(AUTO) 4.67 MIL/uL (4.50-5.90); RED CELL DISTRIBUTION WIDTH 16.3 % (11.5-14.5)
[2019-07-21] MEDS ORDERED: LORazepam 1 MG TABLET PO ONE (20:00)
[2019-07-21] MEDS ORDERED: OLANZapine 5 MG TABLET PO ONE (20:00)
[2019-07-21 20:36] LABS: ANION GAP 8 mmol/L (8-16); CALCIUM, TOTAL 9.5 mg/dL (8.8-10.5); CARBON DIOXIDE 27 mmol/L (22-29); CHLORIDE 101 mmol/L (98-107); CREATININE 1.31 mg/dL (0.60-1.30); GLOMERULAR FILTR. RATE CALC > 60 mL/min (>60); GLUCOSE,RANDOM 102 mg/dL (70-110); POTASSIUM 4.2 mmol/L (3.5-5.1); SODIUM SERUM 136 mmol/L (136-145); UREA NITROGEN, BLOOD 37 mg/dL (7-18)
[2019-07-21 20:43] LABS: ALANINE AMINOTRANSFERASE 67 U/L (12-78); ALBUMIN 3.9 g/dL (3.4-5.0); ALKALINE PHOSPHATASE 60 U/L (46-116); ASPARTATE AMINOTRANSFERASE 106 U/L (15-37); BILIRUBIN,TOTAL 1.2 mg/dL (0.1-1.0); TOTAL PROTEIN, SERUM 8.5 g/dL (6.4-8.2)
[2019-07-21] MEDS ORDERED: OLANZapine 5 MG RAPDIS TABLET PO PRN (20:45)
[2019-07-21] MEDS ORDERED: ZOLPIDEM TARTRATE 10 MG TABLET PO PRN (20:45)
[2019-07-21] MEDS ORDERED: LORazepam 2 MG TABLET PO PRN (20:45)
[2019-07-22 00:52] VITALS: BP 113/62
[2019-07-22] MEDS ORDERED: INFLUENZA VIRUS VACCINE QVS 2019-20 (3YR+)/PF 60 MCG/0.5 ML SYRINGE IM ONE (03:30)
[2019-07-22] MEDS ORDERED: PNEUMOCOCCAL VACCINE POLYVALENT 0.5 ML VIAL [PPSV23] IM ONE (03:30)
[2019-07-22] MEDS ORDERED: DOCUSATE SODIUM 100 MG CAPSULE PO PRN (07:45)
[2019-07-22] MEDS ORDERED: IBUPROFEN 400 MG TABLET PO PRN (07:45)
[2019-07-22] MEDS ORDERED: LOPERAMIDE HCL 2 MG CAPSULE PO PRN (07:45)
[2019-07-22] MEDS ORDERED: ACETAMINOPHEN 325 MG TABLET PO PRN (07:45)
[2019-07-22] MEDS ORDERED: MAGNESIUM HYDROXIDE SUSPENSION 30 ML UDCUP PO PRN (07:45)
[2019-07-22] MEDS ORDERED: CloNIDine HCL 0.1 MG TABLET PO PRN (07:45)
[2019-07-22] MEDS ORDERED: PETROLATUM,WHITE 28 GM JELLY TP PRN (07:45)
[2019-07-22] MEDS ORDERED: GuaiFENesin/D-METHORPHAN [SUGAR-FREE] 200-20MG/10 ML SYRUP UDCUP PO PRN (07:45)
[2019-07-22] MEDS ORDERED: MAG HYDROX/AL HYDROX/SIMETH ES 30 ML SUSPENSION UDCUP PO PRN (07:45)
[2019-07-22] MEDS ORDERED: NICOTINE 14 MG/24 HOUR PATCH TD PRN (07:45)
[2019-07-22] MEDS ORDERED: ALBUTEROL SULFATE HFA 90 MCG/PUFF 8 GM INHALER IH PRN (07:45)
[2019-07-22] MEDS ORDERED: ONDANSETRON HCL 4 MG TABLET PO PRN (07:45)
[2019-07-22 08:00] VITALS: BP 123/74
[2019-07-22] MEDS: AmLODIPine BESYLATE 2.5 MG TABLET PO SCH (08:48)
[2019-07-22] MEDS: FLUoxetine HCL 20 MG CAPSULE PO SCH (12:57)
[2019-07-22 16:00] VITALS: BP 110/65
[2019-07-22] MEDS: CLOTRIMAZOLE 1% 15 GM CREAM TP SCH (17:00)
[2019-07-22] MEDS: OLANZapine 10 MG TABLET PO SCH (20:04)
[2019-07-23 06:12] VITALS: BP 106/69
[2019-07-23 08:00] VITALS: BP 123/71
[2019-07-23] MEDS: CLOTRIMAZOLE 1% 15 GM CREAM TP SCH ×2 (08:17→16:19)
[2019-07-23] MEDS: FLUoxetine HCL 20 MG CAPSULE PO SCH (08:17)
[2019-07-23] MEDS: AmLODIPine BESYLATE 2.5 MG TABLET PO SCH (08:17)
[2019-07-23 16:02] VITALS: BP 123/71
[2019-07-23] MEDS: OLANZapine 10 MG TABLET PO SCH (20:04)
[2019-07-24 00:16] VITALS: BP 124/78
[2019-07-24 08:07] LABS: BASOPHILS % (AUTO) 0.9 % (0.0-2.0); EOSINOPHILS % (AUTO) 1.6 % (1.0-6.0); LYMPHOCYTES # (AUTO) 1.8 K/uL (1.0-4.8); LYMPHOCYTES % (AUTO) 23.4 % (22.0-44.0); MEAN CORPUSCULAR HEMOGLOBIN 25.3 pg (26.0-34.0); MEAN CORPUSCULAR HGB CONC 32.3 G/dL (31.0-37.0); MEAN CORPUSCULAR VOLUME 78 fL (80-100); MONOCYTES # (AUTO) 0.8 K/uL (0.1-1.0); MONOCYTES % (AUTO) 10.5 % (2.0-9.0); NEUTROPHILS # (AUTO) 4.9 K/uL (1.8-7.7); NEUTROPHILS % (AUTO) 63.6 % (40.0-70.0); PLATELET COUNT (AUTO) 302 K/uL (150-450); RED BLOOD CELL COUNT(AUTO) 4.74 MIL/uL (4.50-5.90); RED CELL DISTRIBUTION WIDTH 15.9 % (11.5-14.5)
[2019-07-24] MEDS: AmLODIPine BESYLATE 2.5 MG TABLET PO SCH (08:15)
[2019-07-24] MEDS: CLOTRIMAZOLE 1% 15 GM CREAM TP SCH ×2 (08:15→16:54)
[2019-07-24] MEDS: FLUoxetine HCL 20 MG CAPSULE PO SCH (08:15)
[2019-07-24 08:39] VITALS: BP 16/65
[2019-07-24 16:05] VITALS: BP 116/78
[2019-07-24] MEDS: OLANZapine 10 MG TABLET PO SCH (20:03)
[2019-07-25 00:25] VITALS: BP 102/71
[2019-07-25 08:08] VITALS: BP 113/71
[2019-07-25] MEDS: FLUoxetine HCL 20 MG CAPSULE PO SCH (08:14)
[2019-07-25] MEDS: AmLODIPine BESYLATE 2.5 MG TABLET PO SCH (08:14)
[2019-07-25] MEDS: CLOTRIMAZOLE 1% 15 GM CREAM TP SCH ×2 (08:15→16:30)
[2019-07-25] MEDS ORDERED: FLUO-191 PO (17:49)
[2019-07-25] MEDS ORDERED: OLAN10TA20 PO (17:49)
[2019-07-25 19:00] VITALS: BP 120/84
== END 2019-07-25 21:00 | disposition home or self-care (01) | DRG 750 ==
LOC: EMS 18:35 → B2S 21:07
DX: F25.1 Schizoaffective disorder, depressive type (principal); N17.9 Acute kidney failure, unspecified; R45.851 Suicidal ideations; Z53.20 Procedure and treatment not carried out because of patient's decision for unspecified reasons; B19.20 Unspecified viral hepatitis C without hepatic coma; D64.9 Anemia, unspecified; D72.829 Elevated white blood cell count, unspecified; F15.90 Other stimulant use, unspecified, uncomplicated; F31.9 Bipolar disorder, unspecified; I10 Essential (primary) hypertension; K21.9 Gastro-esophageal reflux disease without esophagitis; Z79.899 Other long term (current) drug therapy; Z91.5 Personal history of self-harm
CPT/HCPCS: G0480

== ENCOUNTER 2019-08-01 14:37 | Emergency (ER) | payer MEDICAID, OTHER ==
[~2019-08-01] VITALS: Ht 172.7 cm; Wt 65.7 kg
[~2019-08-01 14:37] MED LIST changes: +OLAN10TA20 PO; -OLAN10TA3 PO
[2019-08-01 17:16] VITALS: BP 151/106
[2019-08-01 17:17] LABS: BASOPHILS % (AUTO) 0.9 % (0.0-2.0); EOSINOPHILS % (AUTO) 2.1 % (1.0-6.0); HEMATOCRIT 35.3 % (41-53); HEMOGLOBIN 11.3 g/dL (13.5-17.5); LYMPHOCYTES # (AUTO) 1.9 K/uL (1.0-4.8); LYMPHOCYTES % (AUTO) 21.1 % (22.0-44.0); MEAN CORPUSCULAR HEMOGLOBIN 25.1 pg (26.0-34.0); MEAN CORPUSCULAR HGB CONC 31.9 G/dL (31.0-37.0); MEAN CORPUSCULAR VOLUME 79 fL (80-100); MONOCYTES # (AUTO) 1.4 K/uL (0.1-1.0); NEUTROPHILS # (AUTO) 5.6 K/uL (1.8-7.7); NEUTROPHILS % (AUTO) 60.9 % (40.0-70.0); PLATELET COUNT (AUTO) 236 K/uL (150-450); RED BLOOD CELL COUNT(AUTO) 4.48 MIL/uL (4.50-5.90); RED CELL DISTRIBUTION WIDTH 16.2 % (11.5-14.5)
[2019-08-01 17:36] LABS: ANION GAP 5 mmol/L (8-16); CALCIUM, TOTAL 9.3 mg/dL (8.8-10.5); CARBON DIOXIDE 29 mmol/L (22-29); CHLORIDE 102 mmol/L (98-107); CREATININE 0.93 mg/dL (0.60-1.30); GLOMERULAR FILTR. RATE CALC > 60 mL/min (>60); GLUCOSE,RANDOM 112 mg/dL (70-110); SODIUM SERUM 136 mmol/L (136-145); UREA NITROGEN, BLOOD 32 mg/dL (7-18)
[2019-08-01 17:42] LABS: ALANINE AMINOTRANSFERASE 60 U/L (12-78); ALBUMIN 3.7 g/dL (3.4-5.0); ALKALINE PHOSPHATASE 59 U/L (46-116); ASPARTATE AMINOTRANSFERASE 52 U/L (15-37); BILIRUBIN,TOTAL 0.7 mg/dL (0.1-1.0); TOTAL PROTEIN, SERUM 8.1 g/dL (6.4-8.2)
[2019-08-01 18:37] LABS: AMPHET/METH SCREEN,URINE POSITIVE (NEGATIVE); BARBITURATE SCREEN, URINE NEGATIVE (NEGATIVE); BENZODIAZEPINES SCREEN,URINE NEGATIVE (NEGATIVE); CANNABINOID SCREEN,URINE POSITIVE (NEGATIVE); COCAINE SCREEN,URINE NEGATIVE (NEGATIVE); METHADONE SCREEN, URINE NEGATIVE (NEGATIVE); OPIATE SCREEN,URINE NEGATIVE (NEGATIVE)
[2019-08-01 18:38] LABS: PHENCYCLIDINE SCREEN,URINE NEGATIVE (NEGATIVE)
[2019-08-01] MEDS ORDERED: OLANZapine 5 MG TABLET PO ONE (19:15)
[2019-08-01] MEDS ORDERED: LORazepam 2 MG TABLET PO ONE (19:15)
== END 2019-08-01 21:00 | disposition home or self-care (01) ==
LOC: EMS 14:41
DX: F25.1 Schizoaffective disorder, depressive type (principal); F15.10 Other stimulant abuse, uncomplicated; F41.9 Anxiety disorder, unspecified; I10 Essential (primary) hypertension; F17.210 Nicotine dependence, cigarettes, uncomplicated; Z79.899 Other long term (current) drug therapy
CPT/HCPCS: 36415; 80053; 80307; 85025; 99284; 99406; G0480

== ENCOUNTER 2019-11-15 09:30 | Inpatient (IN) | payer MEDICAID, OTHER ==
[~2019-11-15] VITALS: Ht 170.2 cm; Wt 59.6 kg
[2019-11-15 10:50] LABS: BASOPHILS % (AUTO) 0.5 % (0.0-2.0); EOSINOPHILS % (AUTO) 0.2 % (1.0-6.0); HEMATOCRIT 40.8 % (41-53); HEMOGLOBIN 13.1 g/dL (13.5-17.5); LYMPHOCYTES # (AUTO) 2.1 K/uL (1.0-4.8); LYMPHOCYTES % (AUTO) 14.7 % (22.0-44.0); MEAN CORPUSCULAR HEMOGLOBIN 24.6 pg (26.0-34.0); MEAN CORPUSCULAR HGB CONC 32.1 G/dL (31.0-37.0); MEAN CORPUSCULAR VOLUME 76 fL (80-100); MONOCYTES # (AUTO) 1.3 K/uL (0.1-1.0); MONOCYTES % (AUTO) 8.9 % (2.0-9.0); NEUTROPHILS # (AUTO) 10.7 K/uL (1.8-7.7); NEUTROPHILS % (AUTO) 75.7 % (40.0-70.0); PLATELET COUNT (AUTO) 195 K/uL (150-450); RED BLOOD CELL COUNT(AUTO) 5.34 MIL/uL (4.50-5.90); RED CELL DISTRIBUTION WIDTH 15.9 % (11.5-14.5)
[2019-11-15 11:00] LABS: ANION GAP 10 mmol/L (8-16); CALCIUM, TOTAL 9.3 mg/dL (8.8-10.5); CARBON DIOXIDE 29 mmol/L (22-29); CHLORIDE 101 mmol/L (98-107); CREATININE 1.19 mg/dL (0.60-1.30); GLOMERULAR FILTR. RATE CALC > 60 mL/min (>60); GLUCOSE,RANDOM 110 mg/dL (70-110); POTASSIUM 3.2 mmol/L (3.5-5.1); SODIUM SERUM 140 mmol/L (136-145); UREA NITROGEN, BLOOD 51 mg/dL (7-18)
[2019-11-15 11:06] LABS: ALANINE AMINOTRANSFERASE 124 U/L (12-78); ALBUMIN 4.3 g/dL (3.4-5.0); ALKALINE PHOSPHATASE 62 U/L (46-116); ASPARTATE AMINOTRANSFERASE 180 U/L (15-37); BILIRUBIN,TOTAL 1.5 mg/dL (0.1-1.0); TOTAL PROTEIN, SERUM 8.7 g/dL (6.4-8.2)
[2019-11-15] MEDS ORDERED: OLANZapine 5 MG TABLET PO ONE (12:30)
[2019-11-15] MEDS ORDERED: ZOLPIDEM TARTRATE 10 MG TABLET PO PRN (12:45)
[2019-11-15] MEDS ORDERED: HALOPERIDOL 5 MG TABLET PO PRN (12:45)
[2019-11-15] MEDS ORDERED: LORazepam 2 MG TABLET PO PRN (12:45)
[2019-11-15] MEDS ORDERED: POTASSIUM CHLORIDE 20 MEQ ER TABLET PO ONE ×2 (13:15→14:00)
[2019-11-15 13:34] LABS: AMPHET/METH SCREEN,URINE POSITIVE (NEGATIVE); BARBITURATE SCREEN, URINE NEGATIVE (NEGATIVE); BENZODIAZEPINES SCREEN,URINE NEGATIVE (NEGATIVE); CANNABINOID SCREEN,URINE POSITIVE (NEGATIVE); COCAINE SCREEN,URINE NEGATIVE (NEGATIVE); METHADONE SCREEN, URINE NEGATIVE (NEGATIVE); OPIATE SCREEN,URINE NEGATIVE (NEGATIVE)
[2019-11-15 13:36] LABS: PHENCYCLIDINE SCREEN,URINE NEGATIVE (NEGATIVE)
[2019-11-15 15:12] VITALS: BP 143/83
[2019-11-15] MEDS: OLANZapine 10 MG TABLET PO SCH (20:10)
[2019-11-15 21:19] VITALS: BP 144/76
[2019-11-15 21:20] VITALS: BP 144/76
[2019-11-16 08:34] VITALS: BP 142/69
[2019-11-16] MEDS ORDERED: FLUoxetine HCL 20 MG CAPSULE PO SCH (09:00)
[2019-11-16] MEDS ORDERED: ACETAMINOPHEN 325 MG TABLET PO PRN (14:45)
[2019-11-16] MEDS ORDERED: ALBUTEROL SULFATE HFA 90 MCG/PUFF 8 GM INHALER IH PRN (14:45)
[2019-11-16] MEDS ORDERED: LOPERAMIDE HCL 2 MG CAPSULE PO PRN (14:45)
[2019-11-16] MEDS ORDERED: CloNIDine HCL 0.1 MG TABLET PO PRN (14:45)
[2019-11-16] MEDS ORDERED: ONDANSETRON HCL 4 MG TABLET PO PRN (14:45)
[2019-11-16] MEDS ORDERED: IBUPROFEN 400 MG TABLET PO PRN (14:45)
[2019-11-16] MEDS ORDERED: DOCUSATE SODIUM 100 MG CAPSULE PO PRN (14:45)
[2019-11-16] MEDS ORDERED: GuaiFENesin/D-METHORPHAN [SUGAR-FREE] 200-20MG/10 ML SYRUP UDCUP PO PRN (14:45)
[2019-11-16] MEDS ORDERED: PETROLATUM,WHITE 28 GM JELLY TP PRN (14:45)
[2019-11-16] MEDS ORDERED: MAG HYDROX/AL HYDROX/SIMETH ES 30 ML SUSPENSION UDCUP PO PRN (14:45)
[2019-11-16] MEDS ORDERED: MAGNESIUM HYDROXIDE SUSPENSION 30 ML UDCUP PO PRN (14:45)
[2019-11-16] MEDS ORDERED: NICOTINE 14 MG/24 HOUR PATCH TD PRN (14:45)
[2019-11-16] MEDS ORDERED: POTASSIUM CHLORIDE 10 MEQ ER TABLET PO ONE (14:45)
[2019-11-16 19:01] VITALS: BP 136/79
[2019-11-16] MEDS: OLANZapine 10 MG TABLET PO SCH (20:42)
[2019-11-17 03:56] VITALS: BP 126/79
[2019-11-17 08:30] VITALS: BP 136/67
[2019-11-17] MEDS: AmLODIPine BESYLATE 2.5 MG TABLET PO SCH (09:35)
[2019-11-17] MEDS: FLUoxetine HCL 20 MG CAPSULE PO SCH (09:35)
[2019-11-17 16:30] VITALS: BP 134/80
[2019-11-17] MEDS: OLANZapine 10 MG TABLET PO SCH (20:19)
[2019-11-18] MEDS: FLUoxetine HCL 20 MG CAPSULE PO SCH (08:42)
[2019-11-18] MEDS: AmLODIPine BESYLATE 2.5 MG TABLET PO SCH (08:42)
[2019-11-18 09:34] VITALS: BP 100/63
[2019-11-18 19:07] VITALS: BP 125/76
[2019-11-18] MEDS: OLANZapine 10 MG TABLET PO SCH (20:01)
[2019-11-19] MEDS ORDERED: FLUO-191 PO (09:09)
[2019-11-19] MEDS ORDERED: OLAN10TA3 PO (09:10)
[2019-11-19] MEDS ORDERED: AMLO2.5T4 PO (09:12)
[2019-11-19] MEDS: FLUoxetine HCL 20 MG CAPSULE PO SCH (10:04)
[2019-11-19] MEDS: AmLODIPine BESYLATE 2.5 MG TABLET PO SCH (10:04)
[2019-11-19 10:53] VITALS: BP 108/62
== END 2019-11-19 14:50 | disposition home or self-care (01) | DRG 885 ==
LOC: EMS 09:31 → 3EI 13:58
PROVIDERS: ADMIT Psychiatry & Neurology Psychiatry; ATTEND Psychiatry & Neurology Psychiatry
DX: F25.0 Schizoaffective disorder, bipolar type (principal); R45.851 Suicidal ideations; F15.20 Other stimulant dependence, uncomplicated; F41.9 Anxiety disorder, unspecified; F32.9 Major depressive disorder, single episode, unspecified; I10 Essential (primary) hypertension; K21.9 Gastro-esophageal reflux disease without esophagitis; D72.829 Elevated white blood cell count, unspecified; E87.6 Hypokalemia; R41.843 Psychomotor deficit; Z91.5 Personal history of self-harm; Z59.0 Homelessness; Z86.19 Personal history of other infectious and parasitic diseases
CPT/HCPCS: G0480

== ENCOUNTER 2021-07-16 19:45 | Emergency (ER) | payer MEDICAID, OTHER ==
[~2021-07-16] VITALS: Ht 175.3 cm; Wt 63.6 kg
[~2021-07-16 19:45] MED LIST changes: -AMLO2.5T4 PO; +AMLO2.5T96 PO; -OLAN10TA20 PO
[2021-07-16] MEDS ORDERED: ACETAMINOPHEN 500 MG TABLET PO ONE (20:45)
[2021-07-17 03:25] VITALS: BP 125/71
[2021-07-17] MEDS ORDERED: MORPHINE SULFATE 4 MG/ML SYRINGE IM ONE (03:30)
== END 2021-07-17 08:22 | disposition home or self-care (01) ==
LOC: EMS 19:45
DX: S82.52XA Displaced fracture of medial malleolus of left tibia, initial encounter for closed fracture (principal); F25.9 Schizoaffective disorder, unspecified; F32.9 Major depressive disorder, single episode, unspecified; I10 Essential (primary) hypertension; F41.9 Anxiety disorder, unspecified; V09.9XXA Pedestrian injured in unspecified transport accident, initial encounter; Y93.89 Activity, other specified; Y92.89 Other specified places as the place of occurrence of the external cause; Y99.8 Other external cause status
CPT/HCPCS: 29515; 73610; 96372; 99283; J2270